=== PATIENT | male | born 1965 | race Caucasian/White ===

== ENCOUNTER → 2021-10-02 10:32 | Outpatient (BNVA) | payer OTHER, SELFPAY | PROVIDERS: PCP Family Medicine; Visit Provider Nurse Practitioner Family | DX: Z20.822 Contact with and (suspected) exposure to COVID-19 (principal) | CPT/HCPCS: 87635 ==

== ENCOUNTER → 2021-11-27 11:20 | Outpatient (BNVA) | payer OTHER, SELFPAY | PROVIDERS: PCP Family Medicine; Referring Provider Family Medicine; Visit Provider Orthopaedic Surgery | DX: M25.511 Pain in right shoulder (principal); M12.9 Arthropathy, unspecified | CPT/HCPCS: 73030 ==

== ENCOUNTER → 2021-12-06 00:01 | Outpatient (BNVA) | payer OTHER, SELFPAY | PROVIDERS: PCP Family Medicine; Visit Provider Orthopaedic Surgery | DX: Z01.812 Encounter for preprocedural laboratory examination (principal); Z20.822 Contact with and (suspected) exposure to COVID-19 | CPT/HCPCS: 87635 ==

== ENCOUNTER 2021-12-13 09:50 | Day surgery (SDC) | payer OTHER, SELFPAY ==
[2021-12-13] VITALS (27 sets, daily range): BP systolic 124–225; BP diastolic 55–117; PULSE 47–84; RESP 10–25; TEMP 36.1–36.3; O2SAT 89–99; BMI 25.0
[2021-12-13] MEDS: sodium chloride 0.9% 1,000 ML 30 ML IV ×2 (10:34→14:30)
--- NOTE | 2021-12-13 11:17 | ANES.PREANE2 ---
Pre-Anesthetic Assessment Height/Weight: Height 1.68 m Weight 70.307 kg Temp Pulse Resp BP Pulse Ox 97.0 F L 56 L 16 144/78 99 12/13/21 10:09 12/13/21 10:09 12/13/21 10:09 12/13/21 10:09 12/13/21 10:09 Preop Diagnosis: Right acromioclavicular joint separation Operation Date: 12/13/21 11:30 Proposed Procedures p AC Separation Repair (Shoulder) [id number](Right) - Osbaldo Hu MD Familial anesthetic complications: None Was Beta Galilea taken within 24 hours: N/A Was Clonidine taken within 24 hours: N/A Last intake: Intake Last Liquid Date 12/12/21 Last Liquid Time 22:00 Last Solid Date 12/12/21 Last Solid Time 22:00 Social Tobacco and No alcohol Exam alert, oriented x 3 and regular rate & rhythm Airway Submandibular: within normal limits Cervical ROM: within normal limits Mallampati: Class II Dentition: chipped Comments: Comments: Very poor dentition Pulmonary Chronic Obstructive Pulmonary Disease Musc/sk Osteoarthritis/DJD Anesthetic Plan ASA status: 3 Anesthesia: General and Regional (specify below) (Discussed right interscalene) Risk of > 500 ml blood loss (7ml/kg in children): No Medications/Allergies Allergies Allergy/AdvReac Type Severity Reaction Status Date / Time No Known Allergies Allergy Verified 12/13/21 10:05 Current Medications Generic Name Dose Route Start Last Admin Trade Name Freq PRN Reason Stop Dose Admin Sodium Chloride 1,000 mls @ 30 mls/hr 12/13/21 10:00 12/13/21 10:34 Sodium Chloride 0.9% IV 12/14/21 09:59 30 mls/hr .Q24H WINIFRED Administration PFSH Anesthesia Social History Smoking and tobacco status: current every day smoker cigarettes Alcohol intake: current Alcohol intake frequency: holidays/special occasions only Data Anesthesia Cardiac Studies: No Data to Display
--- NOTE | 2021-12-13 11:30 | W.PM.OPSUD ---
Surgery/Procedure H&P Update DATE OF PROCEDURE: December 13, 2021 DATE H&P PERFORMED: 11/27/21 H&P UPDATE INFORMATION: I have reviewed H&P completed within last 30 days PREOP DIAGNOSIS: Right acromioclavicular joint separation PLANNED PROCEDURE: Operation Date: 12/13/21 11:30 Proposed Procedures p AC Separation Repair (Shoulder) [id number]/s43.109a(Right) - Osbaldo Hu MD
--- NOTE | 2021-12-13 13:58 | PM.OP ---
Operative Report Date of procedure: December 13, 2021 Pre-op diagnosis: Preop Diagnosis right acromioclavicular joint separation Procedure done: Right coracoclavicular ligament reconstruction, distal clavicle excision Implants: Lockdown 11 cm Acromioclavicular device 26 mm screw and washer Pathology: none sent Surgeon: Osbaldo Hu Estimated blood loss (mL): 50 Findings: The patient had chronic proximal migration of his clavicle relative to his acromion of at least 3 cm. He had degenerative enlargement and irregularity of his distal clavicle consistent with the chronic separation. Condition: stable Disposition: PACU Procedure: The patient was taken to the operating room and given a general anesthesia.? He was given 2 g of Ancef.? He was prepped and draped in the beachchair position with a bump posterior to the right shoulder.? A timeout was performed.? A 5 cm dorsal incision was made from the distal clavicle or the coracoid.? Dissection was carried down full thickness through the subcutaneous tissue.? The periosteum was elevated over the dorsal clavicle medially and laterally centered over a point 1 cm from the edge of the distal clavicle.? An oscillating saw was used to remove approximately 8 mm of distal clavicle.? The deltoid fascia was then split and dissection carried down to the coracoid. A Lockdown curved passer was passed from medial lateral beneath the coracoid and the measuring tape passed around the coracoid.? It was passed the knee posterior and up and over the clavicle.? With the distal clavicle reduced a 11 cm implant was chosen.? [Next on the back table a gracilis allograft was fixed on both ends with Ultrabraid suture.] Measuring device was then used to pass the final 11 cm implant [and allograft] around the coracoid.? It was secured about the coracoid and tightened passed beneath the posterior and over the anterior coracoid.? A drill hole was made from anterior to posterior medial with a scalpel blade.? The tunnel was measured 22 mm and a 26 mm lockdown screw and washer were placed through the graft securing the distal clavicle in the reduced position. The wound was irrigated with saline.? Deep tissues were closed with 0 Vicryl subcutaneous tissues with 2-0 Vicryl.? Skin was closed with a running 4-0 Stratafix.? Xeroflo gauze, and OpSite dressing.? The patient was placed in a sling, extubated, and taken to recovery room in stable condition.
[2021-12-13] MEDS: midazolam 1 mg/mL INJ 2 mL 2 MG IVP (14:16)
[2021-12-13] MEDS: fentaNYL 50 mcg/mL INJ 2mL IVP ×2 (14:16→14:29)
[2021-12-13] MEDS: acetaminophen 1,000 MG/100 ML PIGGYBACK 400 MG IV (14:30)
[2021-12-13] MEDS: HYDROmorphone 1 mg/mL INJ 1 mL 0.5 MG IVP ×3 (14:42→15:12)
--- NOTE | 2021-12-13 14:56 | SUR.PHASEI ---
1401: PATIENT INTO PACU. SIMPLE MASK PLACED AT 6L O2. DRESSING TO RIGHT SHOULDER IN PLACE AND DRY. PATIENT MOVING AROUND BUT ASLEEP. 1406: GAMMADEX GIVEN BY MOBILE APPLICATION DEVELOPER. 1410: PATIENT AWAKE AND STATES SEVERE PAIN. 1459: PATIENT HAS BEEN MEDICATED SEVERAL TIMES. STILL STATES PAIN AT 10/10. ICE HAS BEEN APPLIED. WILL TALK WITH ANESTHESIA FOR FURTHER PAIN CONTROL.
--- NOTE | 2021-12-13 15:18 | SUR.PHASEI ---
ROOM AIR O2 DROPPED TO 88%, PLACED O2 NC AT 3L ON PT WITH SATS RETURNING TO 94%
--- NOTE | 2021-12-13 15:24 | SUR.PHASEI ---
PATIENT IS RESTING COMFORTABLE. WILL TRANSPORT PATIENT TO OPS SOON.
--- NOTE | 2021-12-13 16:01 | ANE.PACU2 ---
Inpatient post-anesthesia follow up: Airway intact: Yes Vital signs: Temperature 97.3 F Pulse Rate 53 Respiratory Rate 18 Blood Pressure 124/69 Pulse Oximetry 95 Oxygen Delivery Me thod Room Air Oxygen Flow Rate 3 Fraction of Inspir ed Oxygen Hydration adequate: Yes Nausea and vomiting: No Pain level: 4 Mental status: Baseline
[2021-12-13] MEDS: oxyCODONE 5 mg IR Tab/Cap PO (16:22)
== END 2021-12-13 16:59 | disposition home or self-care (01) ==
PROVIDERS: PCP Family Medicine; Visit Provider Orthopaedic Surgery
PROC: (CPT 23550; principal; 2021-12-13 11:20)
DX: S43.101A Unspecified dislocation of right acromioclavicular joint, initial encounter (principal); X58.XXXA Exposure to other specified factors, initial encounter; J44.9 Chronic obstructive pulmonary disease, unspecified; M19.90 Unspecified osteoarthritis, unspecified site; F17.210 Nicotine dependence, cigarettes, uncomplicated
CPT/HCPCS: 23550; C1713; J0690; J1100; J1170; J1580; J2250; J2405; J2704; J3010; J3490; J7030

== ENCOUNTER → 2022-02-08 09:36 | Outpatient (BNVA) | payer OTHER, SELFPAY | PROVIDERS: PCP Family Medicine; Visit Provider Nurse Practitioner Family | DX: Z98.890 Other specified postprocedural states (principal); S42.031D Displaced fracture of lateral end of right clavicle, subsequent encounter for fracture with routine healing; X58.XXXD Exposure to other specified factors, subsequent encounter | CPT/HCPCS: 73030 ==

== ENCOUNTER → 2023-06-17 14:53 | Outpatient (BNVA) | payer OTHER, SELFPAY | PROVIDERS: PCP Family Medicine; Visit Provider Family Medicine | DX: R07.89 Other chest pain (principal); R10.13 Epigastric pain; F17.218 Nicotine dependence, cigarettes, with other nicotine-induced disorders; Z12.5 Encounter for screening for malignant neoplasm of prostate | CPT/HCPCS: 80053; 80061; 83690; 84443; 85025; G0103 ==

== ENCOUNTER → 2023-09-23 17:42 | Outpatient (BNVA) | payer OTHER, SELFPAY | PROVIDERS: PCP Family Medicine; Visit Provider Registered Nurse Neonatal Intensive Care | DX: R39.9 Unspecified symptoms and signs involving the genitourinary system (principal) | CPT/HCPCS: 81000 ==

== ENCOUNTER → 2023-11-04 17:38 | Outpatient (BNVA) | payer OTHER, SELFPAY | PROVIDERS: PCP Family Medicine; Visit Provider Emergency Medicine | DX: R05.8 Other specified cough (principal) | CPT/HCPCS: 87400 ==

== ENCOUNTER → 2024-02-04 17:44 | Outpatient (BNVA) | payer OTHER, SELFPAY | PROVIDERS: PCP Family Medicine; Visit Provider Registered Nurse Neonatal Intensive Care | DX: M25.511 Pain in right shoulder (principal) | CPT/HCPCS: 73030 ==

== ENCOUNTER → 2024-03-01 17:51 | Outpatient (BNVA) | payer OTHER, SELFPAY | PROVIDERS: PCP Family Medicine; Visit Provider Family Medicine | DX: R06.02 Shortness of breath (principal); R04.2 Hemoptysis | CPT/HCPCS: 71046 ==

== ENCOUNTER → 2024-03-09 15:11 | Outpatient (BNVA) | payer OTHER, SELFPAY | PROVIDERS: PCP Family Medicine; Visit Provider Family Medicine | DX: R04.2 Hemoptysis (principal) | CPT/HCPCS: 80053; 85025 ==

== ENCOUNTER 2024-03-19 14:41 | Outpatient (CLI) | payer OTHER, SELFPAY ==
--- NOTE | 2024-03-19 15:00 | CTR_ITS ---
PROCEDURE INFORMATION: Exam: CT Chest Without Contrast; Diagnostic Exam date and time: 03/19/2024 2:54 PM Age: 59 years old Clinical indication: Cough with hemorrhage; Additional info: Hemoptysis TECHNIQUE: Imaging protocol: Diagnostic computed tomography of the chest without contrast. Radiation optimization: All CT scans at this facility use at least one of these dose optimization techniques: automated exposure control; mA and/or kV adjustment per patient size (includes targeted exams where dose is matched to clinical indication); or iterative reconstruction. COMPARISON: CR XR chest 2V* [id number] 03/01/2024 6:00 PM RADIATION DOSE METRICS: Total DLP (mGy-cm): 284.49 FINDINGS: Lungs: 1.6 cm benign calcified granuloma right lung base. Apical capping with mild upper lobe predominant paraseptal emphysema. Bilateral bronchial wall thickening. 2.2 cm subpleural bulla in the left upper lobe medially. No concerning lung nodules, consolidations, or masses. Pleural spaces: Benign 5 mm perifissural nodule/intrapulmonary lymph node abutting on the right major fissure. No pleural effusion or pneumothorax. Heart: Normal heart size. Coronary arteries: No coronary artery calcium. Mediastinal space: Calcified mediastinal granulomas, benign. Lymph nodes: No adenopathy. Vasculature: Mild aortic atherosclerosis without aneurysms. Mild aortic and mitral valve calcifications. Diaphragm: Small hiatal hernia. Liver: Benign 9 mm left hepatic lobe cyst. Bones/joints: Mild thoracic spondylosis without acute fracture/dislocation. Soft tissues: No acute body wall soft tissue findings. CT/CT chest wo con [id number] IMPRESSION: 1. Acute/chronic bronchitis or reactive airways disease. 2. No other acute or discrete findings to explain the patient's hemoptysis. COMMENTS: The presence of pulmonary emphysema on CT is an independent risk factor for lung cancer. In the absence of a history or active diagnosis of lung cancer, it is recommended that this patient with emphysema be evaluated for enrollment in a low dose CT lung cancer screening program.
== END 2024-03-19 14:42 | disposition home or self-care (01) ==
LOC: RAD 14:42
PROVIDERS: PCP Family Medicine; Visit Provider Family Medicine
DX: R04.2 Hemoptysis (principal); J84.10 Pulmonary fibrosis, unspecified; J43.8 Other emphysema; I70.0 Atherosclerosis of aorta; R91.1 Solitary pulmonary nodule; K44.9 Diaphragmatic hernia without obstruction or gangrene; K76.89 Other specified diseases of liver; M47.894 Other spondylosis, thoracic region
CPT/HCPCS: 71250

== ENCOUNTER 2024-06-07 08:58 | Emergency (ER) | payer OTHER, SELFPAY ==
--- NOTE | 2024-06-07 09:04 | XRR_ITS ---
PROCEDURE INFORMATION: Exam: XR Chest Exam date and time: 06/07/2024 9:34 AM Age: 59 years old Clinical indication: Shortness of breath; Additional info: Chest pain TECHNIQUE: Imaging protocol: Radiologic exam of the chest. Views: 1 view. COMPARISON: CT chest con [id number] 03/19/2024 2:54 PM FINDINGS: Lungs: Calcified granuloma is present at the right lung base. No consolidated infiltrates are appreciated. Pleural spaces: Unremarkable. No pleural effusion. No pneumothorax. Heart/Mediastinum: Unremarkable. No cardiomegaly. Bones/joints: Unremarkable. XR/XR chest 1V portable [id number] IMPRESSION: 1. No acute cardiopulmonary findings.
--- NOTE | 2024-06-07 09:04 | ECG_ITS ---
[facility] Test Date: 2024-06-07 Pat Name: Real Hester Department: Room: Gender: Male Oncology Physician: : 1965 Requested By: Parvin Angelo Order Number: [id number] Ralph MD: Verónica Sandy M.D. Measurements Intervals [place] Rate: 83 P: 76 HI: 142 QRS: 79 QRSD: 86 T: 72 QT: 344 QTc: 405 Interpretive Statements SINUS RHYTHM WITH OCCASIONAL VENTRICULAR PREMATURE COMPLEXES No previous ECG available for comparison Electronically Signed On 06-07-2024 23:27:13 CDT by Verónica Sandy M.D. [id number]
[2024-06-07 09:20] VITALS: BP 123/84; PULSE 86; RESP 20; TEMP 36.4; O2SAT 93; BMI 25.6
--- NOTE | 2024-06-07 10:00 | ED_ITS ---
HPI - Chest Pain 2 General: Chief Complaint: Chest Pain Stated Complaint: dizzy, headache, minor chest pains Time Seen by Provider: 06/07/24 09:04 Source: patient Mode of arrival: ambulatory Limitations: no limitations History of Present Illness: Patient is a 59-year-old male who presents to ED today for evaluation of resolved chest pains. Patient states he began noticing chest pain around 2 AM this morning. He states that seem to come and go. He states he has been pain- free for several hours now. He does feel somewhat fuzzy headed . He states he has had this intermittently over the past several weeks. He does not describe it as a dizziness. He was ambulatory back to his room without difficulty or assistance. He is an everyday smoker with a history of COPD. Vital signs are stable upon arrival. Reports chronic cough x 6 months. Had a chest CT back in March for lung cancer screening that was overall unremarkable. MD complaint: chest pain Onset (ago): hour(s) Timing of current episode: now resolved Prior episodes: Yes Onset: during rest Pain location: substernal Pain radiation: none Severity: mild Quality: dull Relieving factors: nothing Exacerbating factors: nothing Associated symptoms: Reports no associated symptoms; Deny abdominal pain, dyspnea, fever(s), nausea, palpitations, syncope or vomiting Treatment prior to arrival: none Related Data Home Medications Medication Instructions Recorded Confirmed albuterol sulfate 90 mcg/actuation 1 - 2 puff inhalation QID PRN 06/07/24 06/07/24 aerosol inhaler Shortness Of Breath Or Wheezing Previous Rx's Medication Instructions Recorded ibuprofen 800 mg tablet 800 mg PO Q8H PRN pain #30 tabs 10/28/23 fluticasone propionate 50 1 spray intranasal DAILY PRN 12/03/23 mcg/actuation nasal allergy symptoms #16 grams spray,suspension (Flonase Allergy Relief) fluticasone 100 mcg-salmeterol 50 1 inh inhalation BID #60 ea 12/11/23 mcg/dose blistr powdr for inhalation (Advair Diskus) cetirizine 10 mg tablet 10 mg PO DAILY #30 tabs 03/31/24 tiotropium bromide 18 mcg capsule 1 cap inhalation DAILY #60 05/20/24 with inhalation device (Spiriva inhalations with HandiHaler) ondansetron 8 mg disintegrating 8 mg PO Q8H PRN nausea and 05/31/24 tablet vomiting 5 days #15 tabs Allergies Allergy/AdvReac Type Severity Reaction Status Date / Time No Known Allergies Allergy Verified 06/07/24 09:25 Review of Systems 2 Const: Denies: fever(s), chills, body aches, fatigue or malaise Eyes: Denies: change in vision, blurry vision, photophobia, floaters or seeing flashes Card: Reports: chest pain; Denies: palpitations, irregular heart rhythm, edema, swelling of feet/ankles, lightheadedness, syncope, pre-syncope, leg pain with exertion or acrocyanosis Resp: Reports: productive cough and chest congestion; Denies: dyspnea, wheezing or hemoptysis GI: Denies: abdominal pain, nausea, vomiting or diarrhea Musc: Denies: neck pain, back pain, extremity pain, extremity swelling, joint pain or joint swelling Skin/Breast: Denies: rash Neuro: Denies: headache(s), numbness in extremities, weakness in extremities, sensory changes or difficulty walking PFSH ED 2 PFSH: Social History Smoking and tobacco/nicotine status: current every day tobacco/nicotine user cigarettes Packs smoked per day: 1 Years cigarettes smoked: 50 Alcohol intake: current Alcohol intake frequency: holidays/special occasions only Substance/Drug Use: current Substance/Drug use frequency: daily Physical Exam 2 Const: COMMON NORMALS: no acute distress, average body habitus, patient oriented x3, no limitations, alert and well nourished GENERAL APPEARANCE: c ooperative ORIENTATION/CONSCIOUSNESS: Yes awake, Yes oriented to person, Yes oriented to place and Yes oriented to time HENMT: FACE & SINUS: normal facial exam and face symmetric Eye: GENERAL EYE: appearance normal, both eyes and all related structures and normal light reflex DIRECT OPHTHALMOSCOPY: Yes normal light reflex OTHER: no nystagmus Neck/C-Spine: COMMON NORMALS: no JVD Chest: COMMONS NORMALS: normal inspection of the chest and normal palpation of entire chest wall Resp: COMMON NORMALS: normal respiratory effort and clear to auscultation bilaterally AUSCULTATION: clear to auscultation bilaterally Cardio: COMMON NORMALS: no JVD, regular rate and regular rhythm RATE: r egular rate RHYTHM: regular rhythm Extremity: COMMON NORMALS: no clubbing, cyanosis or edema, no calf tenderness and no pedal edema GENERAL: Yes normal exam except as noted Neuro: OSMANY COMA SCALE: document GCS findings Willows coma scale eye opening: Spontaneous Willows coma scale verbal response: Orientated Willows coma scale motor response: Obey commands Willows coma scale total score: 15 COMMON NORMALS: patient oriented x3, moves all extremities, no focal motor deficits, no sensory deficits noted and gait normal SENSORIUM/ORIENTATION: Yes alert, Yes oriented to person, Yes oriented to place and Yes oriented to time Skin: COMMON NORMALS: no rashes or lesions noted GENERAL SKIN EXAM: no rashes or lesions noted Course 2 Vital Signs: Vital signs: Vital Signs Temperature 97.5 F L 06/07/24 09:20 Pulse Rate 77 06/07/24 10:28 Respiratory Rate 16 06/07/24 10:28 Blood Pressure 127/80 06/07/24 10:28 Pulse Oximetry 96 06/07/24 10:28 Oxygen Delivery Me thod Room Air 06/07/24 10:28 MDM - Chest Pain Medical Decision Making Patient is a 59-year-old male here for evaluation of chest pain that began around 2 AM this morning. He has been pain-free for several hours. He has remained pain-free during his ED stay. His vital signs are stable. PMH significant for COPD/daily smoking. His EKG upon arrival is nonischemic. His blood work including baseline troponin and BNP are unremarkable. CXR showing no acute cardiopulmonary findings. At this time I would like him to follow-up with his primary care provider. He does state he has a telehealth visit scheduled for next week. Discussed possibly ordering outpatient stress test for further evaluation of his chest pain. He has had recent CT imaging of his chest for lung cancer screening that was unremarkable. Medical Records I reviewed the patient's medical records. Lab Data I reviewed the patient's lab results. 06/07/24 10:10 06/07/24 10:10 Radiology Impressions Chest X-Ray 06/07/24 09:04 IMPRESSION: 1. No acute cardiopulmonary findings. Laboratory Results WBC 9.01 10^3/uL (3.29-11.43) 06/07/24 10:10 RBC 5.46 10^6/uL (3.85-5.65) 06/07/24 10:10 Hgb 16.20 g/dL (11.27-16.99) 06/07/24 10:10 Hct 49.4 % (37-53) 06/07/24 10:10 MCV 90.5 fl (82-101) 06/07/24 10:10 MCH 29.7 pg (27-33) 06/07/24 10:10 MCHC 32.8 g/dL (30-55) 06/07/24 10:10 RDW 13.6 % (12.1-15.1) 06/07/24 10:10 Plt Count 244 10^3/cmm (157-399) 06/07/24 10:10 MPV 10.1 fL (7.4-10.4) 06/07/24 10:10 Neut % (Auto) 62.7 % 06/07/24 10:10 Lymph % (Auto) 21.6 % 06/07/24 10:10 [place] % (Auto) 7.5 % 06/07/24 10:10 Eos % (Auto) 6.3 % 06/07/24 10:10 Baso % (Auto) 0.7 % 06/07/24 10:10 Neut # (Auto) 5.64 10^3/uL (1.8-7.7) 06/07/24 10:10 Lymph # (Auto) 2.0 10^3/uL (0.8-4.8) 06/07/24 10:10 [place] # (Auto) 0.7 10^3/uL (0.2-0.9) 06/07/24 10:10 Eos # (Auto) 0.6 10^3/uL (0.0-0.8) 06/07/24 10:10 Baso # (Auto) 0.1 10^3/uL (0.0-0.1) 06/07/24 10:10 Nucleated RBC % (auto) 0 % 06/07/24 10:10 Nucleated RBCs # 0.0 /100WBC 06/07/24 10:10 Sodium 137 mmol/L (136-145) 06/07/24 10:10 Potassium 4.8 mmol/L (3.5-5.1) 06/07/24 10:10 Chloride 104 mmol/L (98-107) 06/07/24 10:10 Carbon Dioxide 25 mmol/L (22-29) 06/07/24 10:10 Anion Gap 12.8 (5-19) 06/07/24 10:10 BUN 16 mg/dL (8-23) 06/07/24 10:10 Creatinine 0.8 mg/dL (0.7-1.2) 06/07/24 10:10 GFR Calculation 98.3 mL/min (90-130) 06/07/24 10:10 Glucose 95 mg/dL (65-115) 06/07/24 10:10 Calculated Osmolality 285 mOsm/kg (285-295) 06/07/24 10:10 Calcium 9.5 mg/dL (8.5-10.5) 06/07/24 10:10 Total Bilirubin 0.3 mg/dL (0.15-1.2) 06/07/24 10:10 AST 18 U/L (0-40) 06/07/24 10:10 ALT 20 U/L (0-41) 06/07/24 10:10 Alkaline Phosphatase 80 U/L (40-130) 06/07/24 10:10 Troponin T Baseline 9 ng/L (0-15) 06/07/24 10:10 NT-Pro-B Natriuret Pep < 36 pg/mL (0-125) 06/07/24 10:10 Total Protein 6.7 g/dL (6.6-8.7) 06/07/24 10:10 Albumin 4.2 g/dL (3.5-5.2) 06/07/24 10:10 Globulin 2.5 g/dL (1.3-4.6) 06/07/24 10:10 All radiology interpretation(s) finalized by discharge Discharge Plan Discharge Patient Disposition: Home Clinical Impression: Chest pain Qualifiers: Chest pain type: unspecified Qualified Code(s): R07.9 - Chest pain, unspecified Condition: Stable Prescriptions: No Action ibuprofen 800 mg tablet 800 mg PO Q8H PRN (Reason: pain) Qty: 30 0RF cetirizine 10 mg tablet 10 mg PO DAILY Qty: 30 5RF fluticasone propionate [Flonase Allergy Relief] 50 mcg/actuation spray,suspension 1 spray intranasal DAILY PRN (Reason: allergy symptoms) Qty: 16 0RF Rx Instructions: administer into each nostril fluticasone propion-salmeterol [Advair Diskus] 100-50 mcg/dose blister with device 1 inh inhalation BID Qty: 60 2RF tiotropium bromide [Spiriva with HandiHaler] 18 mcg capsule, w/inhalation device 1 cap inhalation DAILY Qty: 60 5RF Rx Instructions: puncture 1 cap using device; one dose = 2 inhalations ondansetron 8 mg tablet,disintegrating 8 mg PO Q8H PRN (Reason: nausea and vomiting) 5 Days Qty: 15 0RF albuterol sulfate 90 mcg/actuation HFA aerosol inhaler 1 - 2 puff inhalation QID PRN (Reason: Shortness Of Breath Or Wheezing) Discharge Orders: Discharge ED (Routine); Ordered 06/07/24 Ordered By: Parvin Angelo Referrals: Vic Shea DO [Primary Care Provider] - Patient Instructions: Chest Pain (DC) Activity Restrictions/Additional Instructions: As we discussed, I would like you to follow-up with your primary care provider as scheduled next week. Please speak to them about possibly ordering an outpatient stress test for further evaluation of your chest pain. You need to return to the emergency department for onset of severe, constant chest pain, lightheadedness, dizziness, passing out episodes, generally feeling worse or unwell, or any other concerns you may have. Coding Level of Care Code ED Sfdc Consultant for Tressa Mcfarlane
[2024-06-07 10:15] LABS: Basophils # 0.1 10^3/uL (0.0-0.1); Basophils % 0.7 %; Eosinophils # 0.6 10^3/uL (0.0-0.8); Eosinophils % 6.3 %; Hematocrit 49.4 % (37-53); Lymphocytes % 21.6 %; Mean Corpuscular HGB Conc 32.8 g/dL (30-55); Mean Corpuscular Hemoglobin 29.7 pg (27-33); Mean Corpuscular Volume 90.5 fl (82-101); Mean Platelet Volume 10.1 fL (7.4-10.4); Monocytes # 0.7 10^3/uL (0.2-0.9); Monocytes % 7.5 %; Neutrophils # 5.64 10^3/uL (1.8-7.7); Neutrophils % 62.7 %; Nucleated Red Blood Cells % 0 %; Platelet Count 244 10^3/cmm (157-399); Red Blood Count 5.46 10^6/uL (3.85-5.65); Red Cell Distribution Width 13.6 % (12.1-15.1); White Blood Count 9.01 10^3/uL (3.29-11.43)
[2024-06-07 10:28] VITALS: BP 127/80; PULSE 77; RESP 16; O2SAT 96
[2024-06-07 10:31] LABS: Troponin(5th) Baseline 9 ng/L (0-15)
[2024-06-07 10:48] LABS: Alanine Aminotransferase 20 U/L (0-41); Albumin Level 4.2 g/dL (3.5-5.2); Alkaline Phosphatase 80 U/L (40-130); Anion Gap 12.8 (5-19); Aspartate Amino Transferase 18 U/L (0-40); Blood Urea Nitrogen 16 mg/dL (8-23); Calcium 9.5 mg/dL (8.5-10.5); Carbon Dioxide 25 mmol/L (22-29); Chloride 104 mmol/L (98-107); Creatinine Clr Calc Pharmacy 88.9315; Globulin 2.5 g/dL (1.3-4.6); Glomerular Filtration Rate 98.3 mL/min (90-130); Glucose 95 mg/dL (65-115); NT Pro B Type Natriuretic Pept < 36 pg/mL (0-125); Osmolality Calculated 285 mOsm/kg (285-295); Potassium 4.8 mmol/L (3.5-5.1); Sodium 137 mmol/L (136-145); Total Bilirubin 0.3 mg/dL (0.15-1.2); Total Protein 6.7 g/dL (6.6-8.7)
--- NOTE | 2024-06-07 11:04 | ECG_ITS ---
[facility] Test Date: 2024-06-07 Pat Name: Real Hester Department: Room: Gender: Male Sales Executive: : 1965 Requested By: Parvin Angelo Order Number: [id number] Ralph MD: Verónica Sandy M.D. Measurements Intervals [place] Rate: 72 P: 57 OR: 137 QRS: 71 QRSD: 86 T: 68 QT: 362 QTc: 397 Interpretive Statements SINUS RHYTHM Compared to ECG 06/07/2024 09:07:24 Ventricular premature complex(es) no longer present Electronically Signed On 06-07-2024 23:37:03 CDT by Verónica Sandy M.D. [id number]
[2024-06-07 11:30] VITALS: BP 120/77; PULSE 73; RESP 20; O2SAT 96
== END 2024-06-07 11:34 | disposition home or self-care (01) ==
PROVIDERS: Emergency Provider Physician Assistant; PCP Family Medicine
DX: R07.9 Chest pain, unspecified (principal); F17.210 Nicotine dependence, cigarettes, uncomplicated
CPT/HCPCS: 36415; 71045; 80053; 83880; 84484; 85025; 93005; 99285

== ENCOUNTER 2025-01-20 10:46 | Outpatient (CLI) | payer OTHER, SELFPAY ==
[2025-01-20 11:03] VITALS: PULSE 89; RESP 18; O2SAT 97
[2025-01-20] MEDS: albuterol 2.5 mg/3 mL Neb INHALATION (11:03)
== END 2025-01-20 10:47 | disposition home or self-care (01) ==
LOC: RT 10:47
PROVIDERS: PCP Family Medicine; Visit Provider Family Medicine
DX: R06.03 Acute respiratory distress (principal); J43.9 Emphysema, unspecified; J98.8 Other specified respiratory disorders; R94.2 Abnormal results of pulmonary function studies
CPT/HCPCS: 94060; 94726; 94729; J7613

== ENCOUNTER 2025-01-28 15:35 | Outpatient (CLI) | payer OTHER, SELFPAY ==
--- NOTE | 2025-01-28 15:45 | CT_ITS ---
WS: [id number] LDCT LUNG CANCER SCREENING HISTORY: Z72.0 - Tobacco use TECHNIQUE: Axial imaging performed from the apices to 1 cm below the costophrenic angles. Coronal and sagittal reformats are submitted with axial MIP series. All CT scans at [facility] use at least one of these dose optimization techniques: automated exposure control; mA and/or kV adjustment per patient size (includes targeted exams where dose is matched to clinical indication); or iterative reconstruction. DLP: 65.27 mGy.cm DIvol: Mean CTDIvol: 1.00 (mGy) COMPARISON: CT chest 03/19/2024 Diagnostic quality: Satisfactory Lungs: Moderate pulmonary hyperexpansion. Benign calcified granuloma at the RIGHT lung base measures 15 mm. Mild central bronchial wall thickening from bronchitis. No pulmonary mass or nodule. No pneumonia. No endobronchial lesions. 2 mm LEFT perifissural nodule. Heart: Normal size heart with no pericardial effusion.. Other findings: Mild atherosclerosis aorta. Normal size pulmonary artery. No adenopathy. Small hiatal hernia. No adrenal mass. Prior surgical repair RIGHT AC joint. CT/CT lung screening [id number] IMPRESSION: LUNG-RADS: 2-Benign Appearance or Behavior FOLLOW UP: 12 Month: Continue annual screening with LDCT OTHER FINDINGS (S MODIFIER): None.
== END 2025-01-28 15:36 | disposition home or self-care (01) ==
LOC: RAD 15:37
PROVIDERS: PCP Family Medicine; Visit Provider Family Medicine
DX: Z12.2 Encounter for screening for malignant neoplasm of respiratory organs (principal); F17.200 Nicotine dependence, unspecified, uncomplicated; R91.8 Other nonspecific abnormal finding of lung field; J84.10 Pulmonary fibrosis, unspecified; J98.4 Other disorders of lung; I70.0 Atherosclerosis of aorta; K44.9 Diaphragmatic hernia without obstruction or gangrene; Z98.890 Other specified postprocedural states
CPT/HCPCS: 71271

== ENCOUNTER → 2025-04-05 15:30 | Outpatient (BNVA) | payer OTHER, SELFPAY | PROVIDERS: PCP Family Medicine; Visit Provider Family Medicine | DX: Z12.5 Encounter for screening for malignant neoplasm of prostate (principal); J44.9 Chronic obstructive pulmonary disease, unspecified; R06.02 Shortness of breath | CPT/HCPCS: 80053; 80061; 85025; G0103 ==